=== PATIENT | female | born 1985 | race Caucasian/White ===

== ENCOUNTER → 2016-10-31 | Outpatient (CLI) | payer BC ==
[2016-10-31 13:20] LABS: LYME DISEASE AB IGG NEG (NEG); LYME DISEASE AB IGM NEG (NEG)
== END | disposition home or self-care (01) ==
LOC: C.LAB 09:28
PROVIDERS: ATTEND Family Medicine
DX: T14.8 Other injury of unspecified body region (principal); W57.XXXA Bitten or stung by nonvenomous insect and other nonvenomous arthropods, initial encounter

== ENCOUNTER → 2017-12-28 | Outpatient (CLI) | payer OTHER | END | disposition home or self-care (01) | LOC: C.LAB 08:05 | PROVIDERS: ATTEND Physician Assistant Medical | DX: Z00.00 Encounter for general adult medical examination without abnormal findings (principal) ==

== ENCOUNTER 2019-09-07 07:21 | Inpatient (IN) ==
[2019-09-07] MEDS ORDERED: OXYTOCIN 30 UNITS/500 ML BAG IV PRN ×2 (07:59→19:28)
--- NOTE | 2019-09-07 08:15 | History & Physical Report ---
Date of Service September 07, 2019 Assessment & Plan (1) Supervision of normal first : 34yo at 38.2 weeks GA. SROM 1. Fetus Cat 1 2. Labor: Contractions increasing. Will allow 4-6 hours for spontaneous labor. If unchanged will augment with oxytocin 3. Vitals: WNL 4. GBS negative History of Present Illness Primary Care Provider: JERRY SnyderC 34yo at 38.2 weeks GA. Presents with SROM. Reporting contractions increasing. No VB. Good FM. uncomplicated to date. EFW at 36 weeks US at 69% Allergies Allergy/AdvReac Type Severity Reaction Status Date / Time diphtheria,pertussis AdvReac severe GI Verified 09/02/19 07:41 (acellular),te upset [From Adacel(Tdap Adolesn/Adult)(PF)] Home Medications Home Medications Medication Instructions Recorded Confirmed Type Lactobacillus 1 cap PO HS cap 03/04/19 09/07/19 History acidophilus-Bifidobac.animalis 31 billion cell capsule [place] 3-6-9 Fatty Acids See Rx Instructions .ROUTE .COMPLEX 09/07/19 09/07/19 History vit no.[id number] 1 tab PO DAILY 09/07/19 09/07/19 History [ Vitamin] Patient History Medical History Varicella Surgical History (Updated 09/07/19 @ 07:33 by Lynn Kimble RN) History of arthroscopy of right shoulder Rotator Cuff-2002 S/P wisdom tooth extraction (~09/11/00) Social History Preferred Language: Faroese Communication Ability: Effective Visual Impairment: Partially Limited Hearing Ability: Normal Beliefs That Will Affect Care: None marital status: marital status details: Aron Kimbrough (35) [phone] Current Living Situation: Spouse Current Living Situation Comment: lives with spouse and dog current occupational status: employed 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 Seatbelt Use: always Sunscreen Use: Yes Physical Exam Constitutional: WD/WN, vitals as above Gastrointestinal (Abdomen): Percussion/Palpation: abdomen soft; abdomen nontender, no guarding and abdomen not rigid EFW 7-8lb Psychiatric: A+Ox3, euthymic affect Genitourinary: normal external appearance OB Exam Abdomen: + vertex Manual OB Exam: + cervical dilation (1.5), + cervical effacement 70%, + station -1 and + amniotic fluid clear OB Exam Monitor Tracing: + external FHT monitor used, + external uterine monitor used, + category I and + normal FHT variability; no early decelerations present, no late decelerations present and no variable decelerations CTX q4-6, Grossly ruptured on exam Results & Data Vital Signs (Past 12 Hours) Vital Signs Temp Pulse Resp BP 09/07/19 07:47 37 C 100 H 20 116/74 09/07/19 07:40 100 H 116/74 Coding Level of Care Code None Diagnoses Supervision of normal first Z34.00
[2019-09-07 08:23] LABS: Hematocrit (blood only) 34.8 % (37-47); Hemoglobin 11.8 g/dL (12.0-16.0); Mean Corpuscular Hemoglobin 33.2 pg (25-34); Mean Corpuscular Hgb Conc 33.9 g/dL (32-36); Mean Platelet Volume 8.4 fL (7.4-10.4); Platelet Count 236 K/uL (130-400); RDW Coefficient of Variation 14.1 % (11.5-14.5); RDW Standard Deviation 50.3 fL (36.4-46.3); Red Blood Count 3.55 M/uL (4.2-5.4)
--- NOTE | 2019-09-07 12:07 | Labor Progress Brief Note ---
Date of Service September 07, 2019 Subjective Reason For Note: Routine Evaluation Current Pain Level(1-10): 7 Assessment & Plan (1) Supervision of normal first : 34yo at 38.2 weeks GA. SROM 1. Fetus Cat 1 2. Labor: Contractions increasing. Will augment with oxytocin if unchanged at next exam 3. Vitals: WNL 4. GBS negative Physical Exam Genitourinary: OB Exam Abdomen: + vertex Manual OB Exam: + cervical dilation 2 cm, + cervical effacement 80%, + station -1 and + amniotic fluid clear OB Exam Monitor Tracing: + external FHT monitor used, + external uterine monitor used, + category I and + normal FHT variability; no early decelerations present, no late decelerations present and no variable decelerations Results & Data Vital Signs (Past 12 Hours) Vital Signs Temp Pulse Resp BP 09/07/19 09:34 96 H 115/70 09/07/19 07:47 37 C 100 H 20 116/74 09/07/19 07:40 100 H 116/74 Coding Level of Care Code None Diagnoses Supervision of normal first Z34.00
--- NOTE | 2019-09-07 16:12 | Labor Progress Brief Note ---
Date of Service September 07, 2019 Subjective Reason For Note: Routine Evaluation Assessment & Plan (1) Supervision of normal first : 34yo at 38.2 weeks GA. SROM 1. Fetus Cat 1 2. Labor: Progressing. Having regular painful contraction. Will augment with oxytocin if unchanged at next exam 3. Vitals: WNL 4. GBS negative Physical Exam Genitourinary: OB Exam Abdomen: + vertex Manual OB Exam: + cervical dilation 4 cm, + cervical effacement 80%, + station 0 and + amniotic fluid clear OB Exam Monitor Tracing: + external FHT monitor used, + external uterine monitor used, + category I and + normal FHT variability; no category III, no early decelerations present, no late decelerations present and no variable decelerations Results & Data Vital Signs (Past 12 Hours) Vital Signs Temp Pulse Resp BP 09/07/19 13:07 36.6 C 82 18 121/68 09/07/19 09:34 96 H 20 115/70 09/07/19 07:47 37 C 100 H 20 116/74 09/07/19 07:40 100 H 116/74 Coding Level of Care Code None Diagnoses Supervision of normal first Z34.00
[2019-09-07] MEDS: LACTATED RINGER'S 1,000 ML IV PRN ×2 (19:31→21:20)
--- NOTE | 2019-09-07 20:12 | Labor Progress Brief Note ---
Date of Service September 07, 2019 Subjective Reason For Note: Routine Evaluation Assessment & Plan (1) Supervision of normal first : 34yo at 38.2 weeks GA. SROM 1. Fetus Cat 1 2. Labor: Unchanged. Will start augmentation with oxytocin 3. Vitals: WNL 4. GBS negative Physical Exam Genitourinary: OB Exam Abdomen: + vertex Manual OB Exam: + cervical dilation 4 cm, + cervical effacement 80%, + station 0 and + amniotic fluid clear OB Exam Monitor Tracing: + external FHT monitor used, + external uterine cornelia tor used and + category I; no early decelerations present, no late decelerations present and no variable decelerations Results & Data Vital Signs (Past 12 Hours) Vital Signs Temp Pulse Resp BP 09/07/19 19:01 88 117/61 09/07/19 19:00 36.4 C L 20 09/07/19 17:18 18 09/07/19 16:16 36.7 C 77 16 115/67 09/07/19 13:07 36.6 C 82 18 121/68 09/07/19 09:34 96 H 20 115/70 Coding Level of Care Code None Diagnoses Supervision of normal first Z34.00
[2019-09-07] MEDS ORDERED: ePHEDrine sulfate 50 MG/ML AMP ONE (20:21)
[2019-09-07] MEDS ORDERED: BUPIVACAINE 0.25% 30 ML VIAL ONE (20:21)
[2019-09-07] MEDS ORDERED: fentaNYL citrate 100 MCG/2 ML VIAL ONE (20:22)
[2019-09-07] MEDS ORDERED: fentaNYL 2MCG/ML ROPIV 1.25MG/ML 100 ML BAG EPI ONE (20:22)
--- NOTE | 2019-09-07 21:52 | Anesthesiology Consultation ---
Date of Service September 07, 2019 Assessment & Plan Chart Review Chart Review: Acceptable Risk for Labor Epidural Consults Requested none History Height/Weight Height: 5 ft 9 in Weight: 98.883 kg Allergies Allergy/AdvReac Type Severity Reaction Status Date / Time diphtheria,pertussis AdvReac severe GI Verified 09/02/19 07:41 (acellular),te upset [From Adacel(Tdap Adolesn/Adult)(PF)] Medications Home Medications Medication Instructions Recorded Confirmed Last Taken Lactobacillus 1 cap PO HS cap 03/04/19 09/07/19 09/06/19 21:45 acidophilus-Bifidobac.animalis 31 billion cell capsule [place] 3-6-9 Fatty Acids See Rx Instructions .ROUTE .COMPLEX 09/07/19 09/07/19 09/06/19 21:45 vit no.[id number] 1 tab PO DAILY 09/07/19 09/07/19 09/06/19 07:00 [ Vitamin] Active Medications Generic Name Dose Route Start Last Admin Trade Name Freq PRN Reason Stop Dose Admin Lactated Ringer's 1,000 mls @ 125 mls/hr 09/07/19 07:59 09/07/19 21:42 Lr IV 09/09/19 07:58 125 mls/hr .Q8H PRN Infusion L&D Protocol Protocol Oxytocin 30 units in 500 mls @ 2 mls/hr 09/07/19 19:28 09/07/19 19:41 Pitocin IV 09/09/19 19:27 0.12 units/hr .Q24H PRN 2 mls/hr Labor Induction/Augmentation Administration Protocol 0.12 UNITS/HR Past Medical History Medical History Varicella Past Family History Family History Mother Breast cancer Grandmother Breast cancer Thyroid disease Stroke Father Hypertension Grandmother (Paternal) Cancer Lung cancer Grandfather (Maternal) Diabetes Denies family history of Rheumatoid arthritis Sudden SIDS (sudden syndrome) Ovarian cancer Prostate cancer Deep vein thrombosis Osteoporosis Coronary heart disease Dyslipidemia Cerebral aneurysm Alzheimer disease Bipolar disorder Clotting disorder Crohn's disease Dementia Depression Heart disease Kidney disease Myocardial infarction Osteoarthritis Schizophrenia Congenital kidney disease Gestational diabetes COPD (chronic obstructive pulmonary disease) Colorectal cancer Pulmonary embolism Lung disease Ulcerative colitis Colonic polyp Uterine cancer Asthma Cystic kidney disease Past Surgical History Surgical History History of arthroscopy of right shoulder Rotator Cuff-2002 S/P wisdom tooth extraction (~09/11/00) Social History Smoking Status: Never smoker Do You Dip or Chew Tobacco: No Hx Alcohol Use: No Hx Substance Use: No Physical Exam Vital Signs Last Vital Signs Temp 36.7 C 09/07/19 21:01 Pulse 102 H 09/07/19 21:49 Resp 24 09/07/19 21:01 BP 114/66 09/07/19 21:49 Pulse Ox 96 09/07/19 21:47 Testing Laboratory Results 09/07/19 08:10
--- NOTE | 2019-09-07 21:56 | Anesthesiology Consultation ---
Date of Service September 07, 2019 History Height/Weight Height: 5 ft 9 in Weight: 98.883 kg Allergies Allergy/AdvReac Type Severity Reaction Status Date / Time diphtheria,pertussis AdvReac severe GI Verified 09/02/19 07:41 (acellular),te upset [From Adacel(Tdap Adolesn/Adult)(PF)] Medications Home Medications Medication Instructions Recorded Confirmed Last Taken Lactobacillus 1 cap PO HS cap 03/04/19 09/07/19 09/06/19 21:45 acidophilus-Bifidobac.animalis 31 billion cell capsule [place] 3-6-9 Fatty Acids See Rx Instructions .ROUTE .COMPLEX 09/07/19 09/07/19 09/06/19 21:45 vit no.[id number] 1 tab PO DAILY 09/07/19 09/07/19 09/06/19 07:00 [ Vitamin] Active Medications Generic Name Dose Route Start Last Admin Trade Name Freq PRN Reason Stop Dose Admin Lactated Ringer's 1,000 mls @ 125 mls/hr 09/07/19 07:59 09/07/19 21:42 Lr IV 09/09/19 07:58 125 mls/hr .Q8H PRN Infusion L&D Protocol Protocol Oxytocin 30 units in 500 mls @ 2 mls/hr 09/07/19 19:28 09/07/19 19:41 Pitocin IV 09/09/19 19:27 0.12 units/hr .Q24H PRN 2 mls/hr Labor Induction/Augmentation Administration Protocol 0.12 UNITS/HR Past Medical History Medical History Varicella Past Family History Family History Mother Breast cancer Grandmother Breast cancer Thyroid disease Stroke Father Hypertension Grandmother (Paternal) Cancer Lung cancer Grandfather (Maternal) Diabetes Denies family history of Rheumatoid arthritis Sudden SIDS (sudden syndrome) Ovarian cancer Prostate cancer Deep vein thrombosis Osteoporosis Coronary heart disease Dyslipidemia Cerebral aneurysm Alzheimer disease Bipolar disorder Clotting disorder Crohn's disease Dementia Depression Heart disease Kidney disease Myocardial infarction Osteoarthritis Schizophrenia Congenital kidney disease Gestational diabetes COPD (chronic obstructive pulmonary disease) Colorectal cancer Pulmonary embolism Lung disease Ulcerative colitis Colonic polyp Uterine cancer Asthma Cystic kidney disease Past Surgical History Surgical History History of arthroscopy of right shoulder Rotator Cuff-2002 S/P wisdom tooth extraction (~09/11/00) Social History Smoking Status: Never smoker Do You Dip or Chew Tobacco: No Hx Alcohol Use: No Hx Substance Use: No Physical Exam Vital Signs Last Vital Signs Temp 36.7 C 09/07/19 21:01 Pulse 97 H 09/07/19 21:53 Resp 24 09/07/19 21:01 BP 121/71 09/07/19 21:53 Pulse Ox 98 09/07/19 21:52 Testing Laboratory Results 09/07/19 08:10
[2019-09-07] MEDS ORDERED: DiphenhydrAMINE HCL 50 MG/ML VIAL IV PRN (21:57)
[2019-09-07] MEDS ORDERED: NALOXONE HCL 1 MG in SODIUM CHLORIDE 0.9% 1000ML 1,000 ML IV PRN (21:57)
[2019-09-07] MEDS ORDERED: fentaNYL 2MCG/ML ROPIV 1.25MG/ML 100 ML BAG EPI PRN (21:57)
[2019-09-07] MEDS ORDERED: ePHEDrine sulfate 50 MG/ML AMP IV PRN (21:57)
[2019-09-07] MEDS ORDERED: NALOXONE HCL 0.4 MG/1 ML VIAL/CARP IV PRN (21:57)
[2019-09-07] MEDS ORDERED: NALBUPHINE HCL INJ 10 MG/ML AMP IV PRN (21:57)
[2019-09-08] MEDS: LACTATED RINGER'S 1,000 ML IV PRN (03:40)
[2019-09-08] MEDS ORDERED: bisacodyL 10 MG SUPP PR PRN (05:06)
[2019-09-08] MEDS ORDERED: BENZOCAINE 20% AER SPR 82.5 GM CAN EXT PRN (05:06)
[2019-09-08] MEDS ORDERED: DIPHTHERIA/TETANUS/PERTUSSIS 0.5 ML SYR/VIAL IM ONE (05:06)
[2019-09-08] MEDS ORDERED: OXYTOCIN 30 UNITS/500 ML BAG IV PRN (05:06)
[2019-09-08] MEDS ORDERED: SUPERCREAM 0.870% 15 GM JAR EXT PRN (05:06)
[2019-09-08] MEDS ORDERED: ACETAMINOPHEN 325 MG TAB PO PRN (05:06)
[2019-09-08] MEDS ORDERED: HYDROCORTISONE ACETATE 25 MG SUPP PR PRN (05:06)
[2019-09-08 05:28] LABS: Base Excess Cord Venous Blood -4.8 mEq/L (-7.7-1.9); Cord Venous Blood HCO3 18 mmol/L (18.4-26.8); Cord Venous Blood PCO2 28 mmHg (30.4-57.2); Cord Venous Blood PO2 40 mmHg (14.1-43.3); Cord Venous Blood pH 7.42 (7.20-7.44)
--- NOTE | 2019-09-08 07:22 | Anesthesia Procedure Note ---
Date of Service September 08, 2019 Anesthesia Post Epidural Note Vital Signs Vital Signs: Temp Pulse Resp BP Pulse Ox 37.4 C 106 H 20 112/72 99 09/08/19 04:05 09/08/19 07:18 09/08/19 06:40 09/08/19 07:18 09/08/19 05:07 Notes Mental Status: alert / awake / arousable and participated in evaluation Nausea / Vomiting: adequately controlled Pain: adequately controlled Airway Patency, RR, SpO2: stable & adequate BP & HR: stable & adequate Hydration State: stable & adequate Neuraxial Anesthesia: was administered and sensory block resolved Anesthetic Complications: no major complications apparent Epidural: Removed without complications and With tip intact
--- NOTE | 2019-09-08 08:27 | Operative Report (OR) ---
DATE OF OPERATION: 09/08/2019 PROCEDURE: Vacuum-assisted vaginal delivery with first degree laceration repair. SURGEON: Kenrick Carr MD. PREOPERATIVE DIAGNOSES: 1. Single intrauterine at 38 weeks 3 days gestational age. 2. Spontaneous rupture of membranes. 3. Prolonged second stage of labor. 4. Maternal exhaustion. POSTOPERATIVE DIAGNOSES: 1. Single intrauterine at 38 weeks 3 days gestational age. 2. Spontaneous rupture of membranes. 3. Prolonged second stage of labor. 4. Maternal exhaustion. 5. Status post delivery. ESTIMATED BLOOD LOSS: 300 mL. DRAINS: None. FLUIDS: Continuous lactated Ringer. URINE OUTPUT: Not measured. COMPLICATIONS: None. FINDINGS: Viable male infant with weight 7 pounds 3.3 ounces and Apgars pending. INDICATIONS: Mariah is a 34-year-old , admitted at 38 weeks 2 days gestational age for spontaneous rupture of membranes, early labor. The patient initially progressed without augmentation to approximately 4 cm, after which she was unchanged between 2 checks. She was started on oxytocin per regular protocol and progressed in labor over several hours to complete-complete +1 station. The patient was able to labor down due to the high station for approximately 1 hour, at which she pushed for approximately 1 hour and then labored down for another hour and then pushed for approximately 2 hours. At that point, the patient did receive an epidural for anesthesia after starting oxytocin. After the 3 hours of pushing, a vacuum-assisted delivery versus continued pushing was discussed. We discussed the risks of performing a vacuum-assisted delivery including the most significant risk of cephalohematoma. The patient was verbally consented for the procedure, and the procedure was initiated and performed. DESCRIPTION OF PROCEDURE: The patient progressed to 10 cm dilated, 100% effaced, +1 station, pushed over an intact perineum for approximately 3 hours, at which time a vacuum was applied and as noted per above, the vacuum was thought to be applied at 2 cm anterior to posterior fontanelle, although inspection after delivery was noted a bit more lateral of a vacuum placement. The vacuum was pressurized within the green zone and care was taken to not pull with greater force than indicated on the pull force indicator. In total over 9 contractions with 1 pop off to achieve delivery, the did come in OP position and it seemed to be slightly asynclitic at the time of vacuum placement. The vacuum did have difficulty maintaining suction during pulls, which was an issue during the first approximately 5-6 pulls, after which the vacuum did seem to start working better and was able to maintain pressure during pulls. This did make it difficult to achieve adequate pulling during the first 4-6 contractions. After the head was fully , the vacuum was removed and the head of the continued to progress to deliver after 1 more push. The body and shoulders did quickly followed. There was noted to be thick meconium upon delivery. The was stable in the maternal abdomen for about 10-15 seconds. It was noted to not be vigorous, so the cord was double clamped and cut, and the was taken over to the waiting nursery staff. Cord segment and cord blood was obtained. Attention was then turned to delivery of the placenta, which was delivered intact, 3-vessel cord, with gentle cord traction. On inspection of the perineum, vagina, and cervix, there was noted to be first degree perineal laceration, which was repaired with 3-0 Vicryl continuous running locked stitch. Needle, sponge and instrument counts were correct at the completion of the case. Both mother and were stable in the immediate post-delivery period. Baby was taken to the nursery for closer surveillance. The mother remained in the delivery room. I attest to the content of the Intraoperative Record and any orders documented therein. Any exception s are noted below.
[2019-09-08] MEDS: PRENATAL VITAMIN 1 TAB PO SCH (09:49)
[2019-09-08] MEDS: DOCUSATE SODIUM 100 MG CAP PO SCH ×2 (09:49→20:27)
[2019-09-08] MEDS: IBUPROFEN 600 MG TAB PO PRN (15:58)
[2019-09-09] MEDS: IBUPROFEN 600 MG TAB PO PRN ×4 (01:55→17:44)
--- NOTE | 2019-09-09 06:23 | Obstetrical Progress Note ---
Date of Service September 09, 2019 Assessment & Plan (1) Status post vacuum-assisted vaginal delivery: Doing well. routine care. First baby so likely staying til tomorrow. Baby having some skin issues on the scalp from delivery. Monitoring. Day #:: 1 Subjective Ambulation: ambulating normally Voiding: no voiding problems Passing Gas:: Yes Diet Tolerance:: regular diet Lochia:: Small Feeding Type:: breast feeding Physical Exam Constitutional WD/WN, vitals as above Cardiovascular Extremities: no calf tenderness and no edema Gastrointestinal (Abdomen) soft, nt, nd, ff/ nt at u Psychiatric A+Ox3, euthymic affect Results & Data Vital Signs (Past 12 Hours) Vital Signs Temp Pulse Resp BP Pulse Ox 09/08/19 19:31 36.7 C 100 H 18 106/71 98
[2019-09-09 06:58] LABS: Hematocrit (blood only) 32.1 % (37-47); Hemoglobin 10.7 g/dL (12.0-16.0); Mean Corpuscular Hemoglobin 32.5 pg (25-34); Mean Corpuscular Hgb Conc 33.3 g/dL (32-36); Mean Corpuscular Volume 97.6 fL (80-100); Mean Platelet Volume 8.4 fL (7.4-10.4); Platelet Count 185 K/uL (130-400); RDW Coefficient of Variation 14.1 % (11.5-14.5); RDW Standard Deviation 50.4 fL (36.4-46.3); Red Blood Count 3.29 M/uL (4.2-5.4)
[2019-09-09] MEDS: DOCUSATE SODIUM 100 MG CAP PO SCH ×2 (08:40→20:32)
[2019-09-09] MEDS: PRENATAL VITAMIN 1 TAB PO SCH (08:40)
[2019-09-09] MEDS ORDERED: bisacodyL 5 MG TABEC PO SCH (20:00)
[2019-09-10 06:39] LABS: Hemoglobin 10.7 g/dL (12.0-16.0)
--- NOTE | 2019-09-10 07:28 | Obstetrical Progress Note ---
Date of Service September 10, 2019 Assessment & Plan (1) Status post vacuum-assisted vaginal delivery: satisfactory progress discharge to home follow up in 6 weeks Day #:: 2 Subjective Ambulation: ambulating normally Passing Gas:: Yes Diet Tolerance:: regular diet Lochia:: Small Feeding Type:: breast feeding Review of Systems All systems reviewed & are unremarkable except as noted in HPI & below Physical Exam Constitutional WD/WN, vitals as above Psychiatric A+Ox3, euthymic affect Genitourinary OB Exam Abdomen: + fundal height Fundus: + firm and + relation to umbilicus (2 below U) Results & Data Vital Signs (Past 12 Hours) Vital Signs Temp Pulse Resp BP Pulse Ox 09/09/19 23:40 98.4 F 106 H 18 118/72 100 09/09/19 21:00 98.1 F 102 H 18 108/71 98
[2019-09-10] MEDS: DOCUSATE SODIUM 100 MG CAP PO SCH (08:42)
[2019-09-10] MEDS: PRENATAL VITAMIN 1 TAB PO SCH (08:42)
--- NOTE | 2019-09-15 09:39 | Discharge Summary (DS) ---
PROCEDURES WHILE ADMITTED: Vacuum-assisted vaginal delivery. HOSPITAL COURSE: The patient was admitted to labor and delivery for spontaneous rupture of membranes in early labor. The patient ultimately progressed to complete-complete, +2 station and pushed for over 3 hours with descent to +2 to +3 station. At that time, the patient was experiencing significant maternal fatigue and a vacuum-assisted delivery was offered, which was performed with success; please see delivery summary for additional details. After delivery, the patient remained in labor and delivery for recovery and did well. She remained in house for 2 days and was doing well throughout her course. The patient had no issues or concerns of note during her course and was discharged home on day #2. The patient was given both written and verbal discharge instructions and will follow up at 6 weeks for care or earlier as needed based on the recommendations provided.
== END 2019-09-10 13:45 | disposition home or self-care (01) | DRG 807 ==
LOC: OPB 07:21 → 4S1 07:22 → 4S2 09-08 07:41

== ENCOUNTER 2022-05-30 13:55 | Inpatient (IN) ==
[2022-05-30] MEDS ORDERED: SODIUM CHLORIDE 0.9% 250 ML IV PRN (14:29)
[2022-05-30] MEDS ORDERED: LACTATED RINGER'S 1,000 ML IV SCH (14:30)
--- NOTE | 2022-05-30 14:31 | Anesthesiology Consultation ---
Date of Service May 30, 2022 Assessment & Plan (1) Encounter for pre-operative examination: Chart Review Chart Review: Acceptable Risk for Surgery Consults Requested none ASA [id number] Proposed Anesthesia Anesthesia Type: Spinal Risk / Benefits Reviewed With: PT / POA / Parent / Guardian, Accepts Plan and Informed Consent Obtained History Allergies Allergy/AdvReac Type Severity Reaction Status Date / Time diphtheria,pertussis AdvReac Intermediate severe GI Verified 05/26/22 10:09 (acellular),te upset [From Adacel(Tdap Adolesn/Adult)(PF)] Medications Home Medications Medication Instructions Recorded Confirmed Last Taken prenat.vits,eleuterio,xpt-naky-mdadn 1 tab PO QAM 11/11/21 05/30/22 05/30/22 Lactobacillus acidophilus 1,000 mmu cells PO QAM 05/12/22 05/30/22 05/29/22 NPO Date Last Intake of Fluids: 05/30/22 Time Last Intake of Fluids: 12:30 Date Last Intake of Solids: 05/30/22 Time Last Intake of Solids: 12:30 Past Medical History Medical History Heart palpitations Rare, s/p unremarkable holter with 2019 per pt History of COVID-19 06/2021 > asymptomatic Placenta previa Post traumatic stress disorder r/t first Exercise / Class Metabolic Activity II 4-5 Yardwork/Stairs/Walk up hill Past Family History Family History Mother Breast cancer Grandmother Thyroid disease Stroke Father Hypertension Grandmother (Paternal) Lung cancer Breast cancer Grandfather (Maternal) Diabetes Denies family history of Rheumatoid arthritis Sudden SIDS (sudden syndrome) Ovarian cancer Prostate cancer Deep vein thrombosis Osteoporosis Coronary heart disease Dyslipidemia Cerebral aneurysm Alzheimer disease Bipolar disorder Clotting disorder Crohn's disease Dementia Depression Heart disease Kidney disease Myocardial infarction Osteoarthritis Schizophrenia Congenital kidney disease Gestational diabetes COPD (chronic obstructive pulmonary disease) Colorectal cancer Pulmonary embolism Lung disease Ulcerative colitis Colonic polyp Uterine cancer Asthma Cystic kidney disease Past Surgical History Surgical History History of arthroscopy of right shoulder Rotator Cuff-2002 History of vacuum extraction assisted delivery S/P wisdom tooth extraction Past Anesthesia History No Hx of Anesthesia Complications and No Family Hx of Anesthesia Complications History of PONV No Hx of PONV and No Hx of Motion Sickness Social History Smoking Status: Never smoker Hx Alcohol Use: No Hx Substance Use: No substance use type: does not use Physical Exam Vital Signs Last Vital Signs Pulse 103 H 05/30/22 14:16 BP 114/68 05/30/22 14:16 ENMT Mouth: no dentition abnormality Thyromental Distance: > or= 3.5 Finger Breadths Mallampati Class: I Neck normal visual inspection Respiratory normal respiratory effort Auscultation: lungs clear to auscultation bilaterally Cardiovascular Rate/Rhythm: regular rate and regular rhythm
--- NOTE | 2022-05-30 14:40 | History & Physical Report ---
Date of Service May 30, 2022 Assessment & Plan (1) Placenta previa: (2) Vaginal bleeding: Plan 37 yo at 35 5/7 presents with vaginal bleeding in the setting of known placenta previa VSS Fetus cat 1 VB - this is second episode of bleeding and today's has mod to large size clots and bleeding, hard to determine if SROM occurred or not. Has already received dose of steroids at 33 wks so is not a candidate for repeat course in late GA. With amount of bleeding noted on exam in the setting of previa and current GA, already s/p betamethasone, rec delivery. Discussed at current GA, most babies do well however this is still risk of baby needing to be transferred after delivery. Would not recommend maternal transfer at this point given bleeding, pt verbalized understanding and in agreement. Discussed indications, risks, benefits, alternatives with risks including infection, bleeding, injury to adjacent structures (bowel, bladder, ureters, blood vessels, nerves, baby), possible need for blood transfusion and/or life saving hysterectomy especially in the setting of previa, VTE. Consent reviewed in detail w/ pt and signed after all questions answered to her satisfaction. Will T&C x 2u. Anesthesia and peds made aware. History of Present Illness Chief Complaint: VB, placenta previa Primary Care Provider: NO PCP 37 yo at 35 5/7 wga presents w/ c/o VB in the setting of known placenta previa. At 120pm today was laying down and felt a warm gush of fluid that was noted to be bloody and watery. This is slightly different to what caused her to present a few weeks ago as today was more watery and continuously trickling out rather than just with wiping a few weeks ago and just more bloody/sticky. +FM, some ctx that are more regular than BH she had previously. Of note was observed at 33 wks for bleeding and given course of BMZ. 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 Hx: G1 2019 VAVD at 38 wks G2 2021 SAB G3 current regular cycles denies hx STIs 09/2019 neg cotest Allergies Allergy/AdvReac Type Severity Reaction Status Date / Time diphtheria,pertussis AdvReac Intermediate severe GI Verified 05/26/22 10:09 (acellular),te upset [From Adacel(Tdap Adolesn/Adult)(PF)] Home Medications Medication Instructions Recorded Confirmed Type prenat.vits,eleuterio,ylk-zvra-qdzdq 1 tab PO QAM 11/11/21 05/30/22 History Lactobacillus acidophilus 1,000 mmu cells PO QAM 05/12/22 05/30/22 History Patient History Medical History Heart palpitations Rare, s/p unremarkable holter with 2019 per pt History of COVID-19 06/2021 > asymptomatic Placenta previa Post traumatic stress disorder r/t first Surgical History History of arthroscopy of right shoulder Rotator Cuff-2002 History of vacuum extraction assisted delivery S/P wisdom tooth extraction Family History Mother Breast cancer Grandmother Thyroid disease Stroke Father Hypertension Grandmother (Paternal) Lung cancer Breast cancer Grandfather (Maternal) Diabetes Denies family history of Rheumatoid arthritis Sudden SIDS (sudden syndrome) Ovarian cancer Prostate cancer Deep vein thrombosis Osteoporosis Coronary heart disease Dyslipidemia Cerebral aneurysm Alzheimer disease Bipolar disorder Clotting disorder Crohn's disease Dementia Depression Heart disease Kidney disease Myocardial infarction Osteoarthritis Schizophrenia Congenital kidney disease Gestational diabetes COPD (chronic obstructive pulmonary disease) Colorectal cancer Pulmonary embolism Lung disease Ulcerative colitis Colonic polyp Uterine cancer Asthma Cystic kidney disease Social History Smoking Status: Never smoker Second Hand Exposure: No; Hx Alcohol Use: No Hx Substance Use: No Preferred Language: Irish Communication Ability: Effective Visual Impairment: Partially Limited Hearing Ability: Normal Senior Writer Required: No Beliefs That Will Affect Care: None marital status: marital status details: Aron Kimbrough (38) [phone] Current Living Situation: Spouse Current Living Situation Comment: lives with spouse, son and dog current occupational status: employed current occupation: [employer] How many Children do You have: 1 Feels Safe at Home: Yes Childhood Exposure to Second-Hand Smoke: No caffeine: Yes (coffee) Dental Care, Regularly: Yes Physical Activity Frequency: Daily Physical Activity Frequency Comment: Takes her dog for a walk, daily. Seatbelt Use: always Sunscreen Use: Yes Assistive Devices: Glasses Physical Exam Genitourinary: OB Exam Monitor Tracing: + external FHT monitor used, + external uterine monitor used (none) and + category I (150/mod/+accel/-decel) SSE - mod to large amount of clot noted to fill speculum, after moving clot out, trickle of blood noted making it difficult to fully visualize cervix No obvious ferning noted on microscopy. SVE deferred Results & Data ([facility]) Vital Signs (Past 12 Hours) Vital Signs Pulse BP 05/30/22 14:16 103 H 114/68 Laboratory Results OB Labs: Blood Type A Positive 05/14/22 Antibody Screen NEGATIVE 05/14/22 Hemoglobin 10.3 g/dl (12.0-16.0) L 05/14/22 Hematocrit 30.2 % (34.1-44.9) L 05/14/22 Mean Corpuscular Volume 100.3 fL (80.0-100.0) H 05/14/22 Platelet Count 173 K/uL (130-400) 05/14/22 Rubella IgG Antibody Immune (Immune) 11/17/21 Rapid Plasma Reagin Nonreactive (Nonreactive) 11/17/21 Hepatitis B Surface Antigen Neg (Neg) 02/18/19 Hepatitis B Surface Antigen. NON-REACTIVE (NON-REACTIVE) 11/17/21 Hepatitis C Antibody (EIA) NON-REACTIVE (NON-REACTIVE) 11/17/21 HIV (1&2) Ab and P24 Ag, 4th Gener Neg (Neg) 02/18/19 HIV (1&2) Ag and Ab Confirmation NON-REACTIVE (NON-REACTIVE) 11/17/21 Glucose 1 Hour 50 gm Load 96 mg/dl (70-130) 06/30/19 Maternal Serum Alpha Fetoprotein 43.4 ng/mL 01/12/22 OB Optional Labs: Chlamydia trachomatis RNA NOT DETECTED (NOT DETECTED) 11/17/21 Neisseria gonorrhoeae RNA NOT DETECTED (NOT DETECTED) 11/17/21 Thyroid Stimulating Hormone (TSH) 2.640 uIu/ml (0.300-4.500) 12/24/20 Alpha Fetoprotein Triple Screen SEE NOTE 01/12/22 Labs Reviewed: cf/sma neg 2018 akh low risk panorama neg afp Diagnostic Findings 05/26 post previa still noted Coding Level of Care Code None Diagnoses Placenta previa O44.00 Vaginal bleeding N93.9
[2022-05-30] MEDS ORDERED: ceFAZolin 2000MG 2,000 MG/15 ML SYR IV SCH (14:41)
[2022-05-30] MEDS ORDERED: CITRIC ACID/SODIUM CITRATE 15 ML UDC PO SCH (14:45)
[2022-05-30] MEDS ORDERED: OXYTOCIN 10 UNITS/ML 10ML VIAL ONE (14:59)
[2022-05-30] MEDS ORDERED: MoRPHine SULFATE PF 1 MG/ML 10 ML AMP/VIAL ONE (15:02)
[2022-05-30] MEDS ORDERED: fentaNYL citrate 100 MCG/2 ML VIAL ONE (15:02)
[2022-05-30 15:06] LABS: Basophils # (auto) 0.02 K/uL (0-0.2); Basophils % (auto) 0.2 %; Eosinophils # (auto) 0.05 K/uL (0-0.50); Eosinophils % (auto) 0.5 %; Hematocrit (blood only) 32.3 % (34.1-44.9); Immature Granulocytes # (auto) 0.03 K/uL (0.00-0.02); Immature Granulocytes % (auto) 0.3 %; Lymphocytes # (auto) 1.39 K/uL (1.2-3.4); Lymphocytes % (auto) 14.5 %; Mean Corpuscular Hemoglobin 33.4 pg (25.0-34.0); Mean Corpuscular Hgb Conc 34.1 g/dL (32.0-36.0); Mean Corpuscular Volume 98.2 fL (80.0-100.0); Mean Platelet Volume 8.1 fL (9.4-12.3); Monocytes % (auto) 5.2 %; Neutrophils % (auto) 79.3 %; Platelet Count 253 K/uL (130-400); RDW Coefficient of Variation 14.1 % (11.5-14.5); RDW Standard Deviation 51.3 fL (36.4-46.3); Red Blood Count 3.29 M/uL (3.93-5.22); White Blood Count 9.59 K/ul (4.8-10.8)
[2022-05-30] MEDS ORDERED: MEPERIDINE HCL 25 MG/ML CARP/VIAL IV PRN (16:11)
[2022-05-30] MEDS ORDERED: NALOXONE HCL 1 MG in SODIUM CHLORIDE 0.9% 1000ML 1,000 ML IV PRN (16:11)
[2022-05-30] MEDS ORDERED: MoRPHine SULFATE PF 1 MG/ML 10 ML AMP/VIAL INT SPINAL ONE (16:11)
[2022-05-30] MEDS ORDERED: ONDANSETRON INJ 2 MG/ML 2 ML VIAL IV PRN (16:11)
[2022-05-30] MEDS ORDERED: NALOXONE HCL 0.08 MG in SYRINGE 1.8 ML IV PRN (16:11)
[2022-05-30] MEDS ORDERED: KETOROLAC 30 MG/ML VIAL IV PRN (16:11)
[2022-05-30] MEDS ORDERED: ePHEDrine sulfate 50 MG/ML AMP IV PRN (16:11)
[2022-05-30] MEDS ORDERED: NALOXONE HCL 0.4 MG/1 ML VIAL/CARP IV PRN (16:11)
[2022-05-30] MEDS ORDERED: LACTATED RINGER'S 500 ML IV PRN (16:11)
[2022-05-30] MEDS ORDERED: diphenhydrAMINE 50 MG/ML VIAL IV PRN (16:11)
[2022-05-30] MEDS ORDERED: NALBUPHINE HCL INJ 10 MG/ML AMP IV PRN (16:11)
[2022-05-30] MEDS ORDERED: SODIUM CHLORIDE 0.9% 1000ML 1,000 ML IV SCH (16:15)
[2022-05-30] MEDS ORDERED: NO NARCOTICS OR SEDATIVES SCH (16:15)
[2022-05-30] MEDS ORDERED: DC INTRASPINAL MORPHINE SCH (16:15)
--- NOTE | 2022-05-30 17:22 | Operative Report ---
PG Post Operative Report Pre & Post Diagnosis Operation Date: 05/30/22 14:25 Pre-operative diagnosis: 1. Single intrauterine at 35 5/7 wga 2. Placenta previa 3. Vaginal bleeding Post-operative diagnosis: 1. Single intrauterine at 35 5/7 wga 2. Placenta previa 3. Vaginal bleeding 4. Delivered I identified the patient and participated in the time-out.: Yes Procedure Operation Date: 05/30/22 14:25 Actual Procedures p Primary Low Transverse Section in OR of a live female child @ 1624(Bilateral) - Nettie Michaels MD Surgeon Nettie Michaels MD Porcelain Enameling Supervisor MD Lauren; MD Kerry Estimated Blood Loss 800 Findings Consistent with Post-Op Diagnosis Normal appearing uterus, bilateral fallopian tubes and ovaries. Posterior uterus with filmy implantation adhesions. Viable female with APGARs of 8 and 8 Fluids 1500cc crystalloid, UOP 250cc clear urine by qiu catheter Specimens Placenta, cord blood Drains Qiu draining clear urine Anesthesia Type Spinal Complications none Disposition Accompanied Patient To Recovery: Yes Disposition: L&D Indications 37 yo at 35 5/7 wga presented for evaluation on L&D this afternoon due to large amount of vaginal bleeding this afternoon. Of note, she had been observed at 33 weeks for vaginal bleeding that did resolve and received a course of betamethasone. On exam, she was noted to have a moderate to large amount of bleeding today. Given gestational age and bleeding, she was recommended for delivery. Description of Procedure The patient was taken to the operating room after consents were ensured. The patient was properly identified. Spinal anesthesia was obtained without difficulty. The patient was placed in a dorsal supine position with left lateral tilt, then prepped and draped in normal sterile fashion. Surgical time out was performed. Antibiotics were given for prophylaxis. Anesthesia was tested to ensure adequate surgical levels. Pfannenstiel skin incision was performed and carried down to the underlying fascia with a knife. The fascia was then nicked in the midline and extended laterally with pickadriana and Layne scissors. Superior portion of the fascia was grasped with Kochers x2 and elevated off the underlying rectus muscles using blunt dissection. Inferior portion of the fascia was then grasped with Karl clamps x2 and also elevated off the underlying muscles with blunt dissection. Midline was identified. The peritoneum was then entered and extended to provide adequate room for delivery of baby. A hand was inserted into the abdomen, uterus was noted to be clear of adhesions. Bladder blade was inserted, bladder flap was created in the usual fashion. A low transverse uterine incision was made in the uterus and extended bluntly in a superior to inferior fashion. Amniotomy was made with clear fluid at the time of rupture. head was grasped and elevated through the hysterotomy in an atraumatic fashion. The baby delivered in LASHA position, no nuchal cord. Remainder of the body delivered without incident. Nose and mouth were bulb suctioned on the surgical field. The cord was double clamped and cut, baby was handed off to awaiting pediatrics staff. Cord segment and blood were obtained. Placenta was then expressed from the uterus. The uterus was exteriorized. Several passes were made inside the uterus to remove the remaining membranes. Attention was then turned to the hysterotomy, which was then closed with a running locked suture of 0 Vicryl on a CTX needle. An imbricating layer was then performed using 0-Monocryl. There was noted to be good hemostasis. The posterior cul-de-sac was then inspected and cleaned of clot and debris. There was noted to be bleeding from the filmy adhesions posteriorly that was made hemostatic with cautery and luís-seal. There was then good hemostasis. The hysterotomy was again inspected and noted to be hemostatic. The uterus was returned to the abdomen. The right and left pericolic gutters were cleaned of all clot and debris. The hysterotomy was again noted to be hemostatic. Space of Retzius was noted to be hemostatic. Debby was applied to the hysterotomy. The fascia was then closed with a running suture of 0 Vicryl on a CT1 needle. Subcutaneous tissue was copiously irrigated and noted to be hemostatic. Subcutaneous tissue was re-approximated using 2-0 plain gut. The skin was then closed with a running suture of 3-0 Monocryl in a subcuticular fashion. At termination of the procedure, fundal pressure was applied and a moderate amount of lochia was expressed. Pressure dressing was applied to the patient. She tolerated the procedure well. All sponge, needle, instrument counts were correct x 2. I attest to the content of the Intraoperative Record and any orders documented therein. Any exceptions are noted below. OB Procedure Charges 53812
[2022-05-30] MEDS ORDERED: PHENYLEPHRINE HCL 10 MG/ML VIAL ONE (17:27)
[2022-05-30] MEDS ORDERED: ONDANSETRON INJ 2 MG/ML 2 ML VIAL ONE (17:27)
[2022-05-30] MEDS ORDERED: MAGNESIUM HYDROXIDE SUSP 30 ML UDC PO PRN (18:11)
[2022-05-30] MEDS ORDERED: BENZOCAINE 20% AER SPR 82.5 GM CAN EXT PRN (18:11)
[2022-05-30] MEDS ORDERED: HYDROCORTISONE ACETATE 25 MG SUPP PR PRN (18:11)
[2022-05-30] MEDS ORDERED: PROMETHAZINE HCL 25 MG in SODIUM CHLORIDE 0.9% 50 ML IV PRN (18:11)
[2022-05-30] MEDS ORDERED: SENNA 8.6 MG TAB PO PRN (18:11)
--- NOTE | 2022-05-30 18:13 | Anesthesiology Progress Note ---
Date of Service May 30, 2022 Anesthesia Post Procedure Vital Signs Vital Signs: Temp Pulse Resp BP Pulse Ox 05/30/22 17:58 16 05/30/22 17:48 18 05/30/22 17:38 18 05/30/22 17:28 16 05/30/22 17:18 98.2 F 16 05/30/22 17:18 97.9 F 16 05/30/22 14:03 98.2 F 20 05/30/22 18:08 91 H 97/56 L 05/30/22 18:07 85 100 05/30/22 18:02 88 100 05/30/22 17:57 85 100 05/30/22 17:58 83 105/61 05/30/22 17:52 92 H 100 05/30/22 17:48 89 101/62 05/30/22 17:47 92 H 100 05/30/22 17:42 94 H 100 05/30/22 17:39 100 H 126/73 05/30/22 17:36 100 H 100 05/30/22 17:31 84 100 05/30/22 17:28 87 96/66 L 05/30/22 17:26 92 H 99 05/30/22 17:21 89 100 05/30/22 17:18 88 109/61 05/30/22 17:16 90 100 05/30/22 15:00 20 05/30/22 15:00 20 05/30/22 14:16 103 H 114/68 Transfer of Care Handoff Completed per policy Notes Mental Status: alert / awake / arousable and participated in evaluation Patient Amnestic to Procedure: Yes Nausea / Vomiting: adequately controlled Pain: adequately controlled Airway Patency, RR, SpO2: stable & adequate BP & HR: stable & adequate Hydration State: stable & adequate Neuraxial Anesthesia: was administered and sensory block is resolving Anesthetic Complications: no major complications apparent and Pt Satisfied with anesthetic care
[2022-05-30] MEDS: OXYTOCIN 20 UNITS in LACTATED RINGER'S 1,000 ML IV SCH (18:28)
[2022-05-30] MEDS: SIMETHICONE 80 MG CHEW PO SCH (21:00)
[2022-05-30] MEDS: DOCUSATE SODIUM 100 MG CAP PO SCH (21:00)
[2022-05-31] MEDS: OXYTOCIN 20 UNITS in LACTATED RINGER'S 1,000 ML IV SCH (04:55)
--- NOTE | 2022-05-31 05:40 | Obstetrical Progress Note ---
Date of Service <Barbara Smith DO Kerry - Last Filed: 05/31/22 06:18> May 31, 2022 Assessment & Plan <Barbara Smith DO Kerry - Last Filed: 05/31/22 06:18> (1) care following delivery: Patient is PPD 1 s/p primary C section and doing well. - Remove urinary catheter today - Vitals reviewed and within normal limits - Pain well controlled w/o analgesics - OOB, ambulation, diet progression as tolerated - Blood type: A+, GBS neg, rubella immune - Plan to discharge tomorrow pending clinical status - After discharge, 6 [address] follow up with Dr. Michaels (2) Placenta previa: <Nettie Michaels MD - Last Filed: 05/31/22 07:02> (1) care following delivery: (2) Placenta previa: Subjective <Barbara HuntDO zan - Last Filed: 05/31/22 06:18> Patient is a 37 yo female is POD #1 following delivery at 35+5 weeks d/t placenta previa w/ associated bleeding. She reports feeling well overall this morning. She endorses abdominal cramping and cannot rate pain as she describes her sensation as an ache or a soreness. She has not required analgesics at this point. Urinary catheter still in place. Tolerating fluids overnight; has not yet been hungry for food. She has not ambulated yet. She has "gas pains" but no passage of gas and no bowel movement. Persistent lochia with some improvement this morning. Currently breast feeding w/ supplementation as necessary. Review of Systems Denies fever, chills, sweats. Denies SOB, difficulty breathing, chest pain, palpitations, and chest pressure. Denies breast pain. Denies dysuria. Denies headache or changes in vision. Physical Exam <Barbara RichardsonGlenn Payne DO - Last Filed: 05/31/22 06:18> General: Alert and oriented. No acute distress. CV: Regular rate and rhythm. No murmurs. Respiratory: CTA bilaterally. No rhonchi, wheezes, or crackles. No increased work of breathing. Abdomen: Hypoactive bowel sounds. Soft, nontender, and nondistended. Uterus: Fundus firm and palpable 2 cm below umbilicus. Surgical scar dressing in place. Clean and dry. Lower extremities: No LE edema. No deep calf pain. Moris's negative bilaterally. SCDs on and functional. Results & Data ([facility]) <Barbara Payne, DO - Last Filed: 05/31/22 06:18> Vital Signs (Past 12 Hours) Vital Signs Temp Pulse Pulse Pulse Resp BP BP 05/31/22 04:40 36.7 C 98 H 18 05/31/22 03:30 18 05/30/22 23:30 36.4 C L 96 H 18 05/31/22 02:30 18 05/31/22 01:30 18 05/31/22 00:30 18 05/30/22 23:30 18 05/30/22 22:30 18 05/30/22 20:45 36.9 C 18 05/30/22 20:30 18 05/30/22 19:30 36.4 C L 96 H 18 102/64 05/30/22 19:30 18 05/30/22 19:20 36.4 C L 18 05/30/22 19:20 05/30/22 19:20 36.4 C L 96 H 18 102/69 05/30/22 18:48 16 05/30/22 18:18 18 05/30/22 18:08 16 05/30/22 17:58 16 05/30/22 17:48 18 05/30/22 19:17 93 H 102/64 05/30/22 19:12 97 H 05/30/22 19:08 105 H 102/69 05/30/22 19:07 104 H 05/30/22 19:02 99 H 05/30/22 18:57 90 05/30/22 18:58 92 H 110/68 05/30/22 18:52 91 H 05/30/22 18:48 93 H 109/66 05/30/22 18:47 101 H 05/30/22 18:42 89 05/30/22 18:38 85 100/60 05/30/22 18:37 90 05/30/22 18:32 91 H 05/30/22 18:28 86 108/72 05/30/22 18:27 91 H 05/30/22 18:22 94 H 05/30/22 18:19 89 109/60 05/30/22 18:17 90 05/30/22 18:12 81 05/30/22 18:08 91 H 97/56 L 05/30/22 18:07 85 05/30/22 18:02 88 05/30/22 17:57 85 05/30/22 17:58 83 105/61 05/30/22 17:52 92 H 05/30/22 17:48 89 101/62 05/30/22 17:47 92 H 05/30/22 17:42 94 H BP Pulse Ox O2 Del Method 05/31/22 04:40 102/67 95 Room Air 05/31/22 03:30 94 05/30/22 23:30 110/70 96 Room Air 05/31/22 02:30 97 05/31/22 01:30 97 05/31/22 00:30 95 05/30/22 23:30 96 05/30/22 22:30 96 05/30/22 20:45 109/72 96 Room Air 05/30/22 20:30 96 05/30/22 19:30 96 Room Air 05/30/22 19:30 96 05/30/22 19:20 05/30/22 19:20 Room Air 05/30/22 19:20 100 Room Air 05/30/22 18:48 05/30/22 18:18 05/30/22 18:08 05/30/22 17:58 05/30/22 17:48 05/30/22 19:17 100 05/30/22 19:12 99 05/30/22 19:08 05/30/22 19:07 99 05/30/22 19:02 99 05/30/22 18:57 99 05/30/22 18:58 05/30/22 18:52 99 05/30/22 18:48 05/30/22 18:47 99 05/30/22 18:42 100 05/30/22 18:38 05/30/22 18:37 100 05/30/22 18:32 100 05/30/22 18:28 05/30/22 18:27 100 05/30/22 18:22 100 05/30/22 18:19 05/30/22 18:17 100 05/30/22 18:12 100 05/30/22 18:08 05/30/22 18:07 100 05/30/22 18:02 100 05/30/22 17:57 100 05/30/22 17:58 05/30/22 17:52 100 05/30/22 17:48 05/30/22 17:47 100 05/30/22 17:42 100 <Nettie Michaels MD - Last Filed: 05/31/22 07:02> Co-Signing Physician Notes Resident Physician Supervision Note: I interviewed and examined the patient. Discussed with Dr. Payne and agree with findings and plan as documented in the note. Any exceptions or clarifications are listed here: POD1 s/p pLTCS, doing well. VSS, exam benign and wnl, dressing w/ small area of shadowing on lower L that was stable overnight per nursing. Will remove in shower today, qiu, continue routine pp care Documented By: Nettie Michaels MD Resident Activity Tracking <Barbara Payne DO - Last Filed: 05/31/22 06:18> Resident Involvement: Resident Care Provided Care Provided: OB Delivery
[2022-05-31] MEDS ORDERED: LACTATED RINGER'S 1,000 ML IV SCH (06:00)
[2022-05-31 06:51] LABS: Basophils # (auto) 0.02 K/uL (0-0.2); Basophils % (auto) 0.2 %; Eosinophils # (auto) 0.06 K/uL (0-0.50); Eosinophils % (auto) 0.5 %; Hematocrit (blood only) 28.2 % (34.1-44.9); Hemoglobin 9.8 g/dl (12.0-16.0); Immature Granulocytes # (auto) 0.04 K/uL (0.00-0.02); Immature Granulocytes % (auto) 0.4 %; Lymphocytes # (auto) 1.11 K/uL (1.2-3.4); Mean Corpuscular Hemoglobin 33.7 pg (25.0-34.0); Mean Corpuscular Hgb Conc 34.8 g/dL (32.0-36.0); Mean Corpuscular Volume 96.9 fL (80.0-100.0); Mean Platelet Volume 8.2 fL (9.4-12.3); Monocytes # (auto) 0.61 K/uL (0.24-0.82); Monocytes % (auto) 5.5 %; Neutrophils # (auto) 9.21 K/uL (1.4-6.5); Neutrophils % (auto) 83.4 %; Platelet Count 194 K/uL (130-400); RDW Coefficient of Variation 14.2 % (11.5-14.5); RDW Standard Deviation 50.7 fL (36.4-46.3); Red Blood Count 2.91 M/uL (3.93-5.22); White Blood Count 11.05 K/ul (4.8-10.8)
[2022-05-31] MEDS: DOCUSATE SODIUM 100 MG CAP PO SCH ×2 (08:36→20:35)
[2022-05-31] MEDS: SIMETHICONE 80 MG CHEW PO SCH ×4 (08:36→22:16)
[2022-05-31] MEDS: PRENATAL VITAMIN 1 TAB PO SCH (08:36)
[2022-05-31] MEDS: FERROUS SULFATE 325 MG TAB PO SCH (08:36)
[2022-05-31] MEDS ORDERED: DIPHTHERIA/TETANUS/PERTUSSIS 0.5 ML SYR/VIAL IM ONE (09:00)
[2022-05-31] MEDS ORDERED: ONDANSETRON INJ 2 MG/ML 2 ML VIAL IV PRN (10:11)
[2022-05-31] MEDS ORDERED: KETOROLAC 30 MG/ML VIAL IV PRN (10:11)
[2022-05-31] MEDS ORDERED: oxyCODONE/ACETAMINOPHEN 5mg/325mg TAB PO PRN (10:11)
[2022-05-31] MEDS ORDERED: diphenhydrAMINE Capsule 25 MG CAP PO PRN (10:11)
[2022-05-31] MEDS ORDERED: diphenhydrAMINE 50 MG/ML VIAL IV PRN (10:11)
[2022-05-31] MEDS: IBUPROFEN 600 MG TAB PO PRN ×2 (15:44→23:57)
[2022-05-31] MEDS ORDERED: bisacodyL 5 MG TABEC PO SCH (20:00)
[2022-06-01 06:31] LABS: Hematocrit (blood only) 29.6 % (34.1-44.9); Hemoglobin 10.1 g/dl (12.0-16.0)
--- NOTE | 2022-06-01 06:31 | Obstetrical Progress Note ---
Date of Service <Barbara RichardsonGlenn Payne DO - Last Filed: 06/01/22 06:58> June 01, 2022 Assessment & Plan <Barbara Smith DO Kerry - Last Filed: 06/01/22 06:58> (1) care following delivery: Patient is PPD 2 s/p primary C section and doing well. - Eating well, voiding well, ambulating well - Vitals reviewed and within normal limits - Pain well controlled with analgesics - OOB, ambulation, diet progression as tolerated - Blood type: A+, GBS neg, rubella immune - Plan to discharge tomorrow per pt preference - After discharge, 6 week follow up with Dr. Michaels <Leta Benites MD, FACOG - Last Filed: 06/01/22 07:28> (1) care following delivery: Subjective <Barbara Smith DO Kerry - Last Filed: 06/01/22 06:58> Patient is a 37 yo female is POD #2 following delivery at 35+5 weeks. She reports feeling well overall this morning. She endorses "gas pains" and soreness well managed on analgesics. Voiding without issue. Tolerating regular meals overnight and able to ambulate some. She has passed gas and no bowel movement. Persistent lochia with some improvement this morning. Currently breast feeding. Review of Systems Denies fever, chills, sweats. Denies SOB, difficulty breathing, chest pain, palpitations, and chest pressure. Denies breast pain. Denies dysuria. Denies headache or changes in vision. Physical Exam <Barbara RichardsonGlenn Payne DO - Last Filed: 06/01/22 06:58> General: Alert and oriented. No acute distress. CV: Regular rate and rhythm. No murmurs. Respiratory: CTA bilaterally. No rhonchi, wheezes, or crackles. No increased work of breathing. Abdomen: Positive bowel sounds. Soft, nontender, and nondistended. Uterus: Fundus firm and palpable 3 cm below umbilicus. Surgical scar clean and healing well. Lower extremities: No LE edema. No deep calf pain. Moris's negative bilaterally. Results & Data ([facility]) <Barbara Payne DO - Last Filed: 06/01/22 06:58> Vital Signs (Past 12 Hours) Vital Signs Temp Pulse Resp BP Pulse Ox O2 Del Method 06/01/22 00:05 36.5 C 102 H 18 103/68 Room Air 05/31/22 19:29 36.7 C 100 H 16 111/68 97 Room Air <Leta Benites MD, FACOG - Last Filed: 06/01/22 07:28> Co-Signing Physician Notes Resident Physician Supervision Note: I interviewed and examined the patient. Discussed with Dr. Payne and agree with findings and plan as documented in the note. Any exceptions or clarifications are listed here: [None] Documented By: Leta Benites MD, FACOG Resident Activity Tracking <Barbara Payne DO - Last Filed: 06/01/22 06:58> Resident Involvement: Resident Care Provided Care Provided: OB Delivery
[2022-06-01] MEDS ORDERED: ACETAMINOPHEN 325 MG TAB PO PRN (07:25)
[2022-06-01] MEDS: DOCUSATE SODIUM 100 MG CAP PO SCH ×2 (07:57→20:48)
[2022-06-01] MEDS: FERROUS SULFATE 325 MG TAB PO SCH (07:57)
[2022-06-01] MEDS: IBUPROFEN 600 MG TAB PO PRN ×2 (07:57→14:02)
[2022-06-01] MEDS: SIMETHICONE 80 MG CHEW PO SCH ×4 (07:57→20:48)
[2022-06-01] MEDS: PRENATAL VITAMIN 1 TAB PO SCH (07:57)
[2022-06-01] MEDS ORDERED: bisacodyL 10 MG SUPP PR PRN (17:10)
[2022-06-02] MEDS: IBUPROFEN 600 MG TAB PO PRN ×3 (01:31→20:14)
--- NOTE | 2022-06-02 05:41 | Obstetrical Progress Note ---
Date of Service <Barbara Huntzan - Last Filed: 06/02/22 06:37> June 02, 2022 Assessment & Plan <Barbara Huntthujames DO - Last Filed: 06/02/22 06:37> (1) care following delivery: Patient is PPD 3 s/p primary C section and doing well. - Eating well, voiding well, ambulating well - Vitals reviewed and within normal limits - Pain well controlled with analgesics - OOB, ambulation, diet progression as tolerated - Blood type: A+, GBS neg, rubella immune - Plan to discharge today - After discharge, 6 week follow up with Dr. Michaels <Faby Schofield, DO - Last Filed: 06/02/22 07:52> (1) care following delivery: Subjective <Barbara Huntthujames DO - Last Filed: 06/02/22 06:37> Patient is a 37 yo female is POD #3 following delivery at 35+5 weeks. She reports feeling well overall this morning. She denies abdominal cramping and sore quality pain well managed on analgesics. Voiding without issue. Tolerating regular meals overnight and able to ambulate some. She has passed gas and no bowel movement. Persistent lochia with some improvement this morning. Currently breast feeding. Review of Systems Denies fever, chills, sweats. Denies SOB, difficulty breathing, chest pain, palpitations, and chest pressure. Denies breast pain. Denies dysuria. Denies headache or changes in vision. Physical Exam <Barbara Huntzan DO - Last Filed: 06/02/22 06:37> General: Alert and oriented. No acute distress. CV: Regular rate and rhythm. No murmurs. Respiratory: CTA bilaterally. No rhonchi, wheezes, or crackles. No increased work of breathing. Abdomen: Positive bowel sounds. Soft, nontender, and nondistended. Uterus: Fundus firm and palpable 3 cm below umbilicus. Surgical scar clean and healing well. Lower extremities: No LE edema. No deep calf pain. Moris's negative bilaterally. Results & Data ([facility]) <Barbara RichardsonGlenn Payne DO - Last Filed: 06/02/22 06:37> Vital Signs (Past 12 Hours) Vital Signs Temp Pulse Resp BP Pulse Ox O2 Del Method 06/01/22 23:04 36.6 C 92 H 29 H 109/69 98 Room Air 06/01/22 19:16 36.8 C 97 H 16 106/69 99 Room Air <Faby Schofield DO - Last Filed: 06/02/22 07:52> Co-Signing Physician Notes Resident Physician Supervision Note: I interviewed and examined the patient. Discussed with Dr. Payne and agree with findings and plan as documented in the note. Any exceptions or clarifications are listed here: POD#3 doing well. Desires DC home, reviewed instructions. Documented By: Faby Schofield DO Resident Activity Tracking <Barbara Payne DO - Last Filed: 06/02/22 06:37> Resident Involvement: Resident Care Provided Care Provided: OB Delivery
[2022-06-02] MEDS: SIMETHICONE 80 MG CHEW PO SCH ×4 (08:21→20:14)
[2022-06-02] MEDS: PRENATAL VITAMIN 1 TAB PO SCH (08:22)
[2022-06-02] MEDS: FERROUS SULFATE 325 MG TAB PO SCH (08:22)
[2022-06-02] MEDS: DOCUSATE SODIUM 100 MG CAP PO SCH ×2 (08:22→20:14)
--- NOTE | 2022-06-03 08:01 | Obstetrical Progress Note ---
Date of Service June 03, 2022 Assessment & Plan (1) care following delivery: Patient is PPD 4 s/p primary C section and doing well. - Eating well, voiding well, ambulating well - Vitals reviewed and within normal limits - Pain well controlled with analgesics - OOB, ambulation, diet progression as tolerated - Blood type: A+, GBS neg, rubella immune - Plan to discharge today - After discharge, 6 week follow up Results & Data ([facility]) Vital Signs (Past 12 Hours) Vital Signs Temp Pulse Resp BP Pulse Ox O2 Del Method 06/02/22 23:00 97.7 F 90 16 107/73 98 Room Air
[2022-06-03] MEDS: DOCUSATE SODIUM 100 MG CAP PO SCH (08:21)
[2022-06-03] MEDS: FERROUS SULFATE 325 MG TAB PO SCH (08:21)
[2022-06-03] MEDS: IBUPROFEN 600 MG TAB PO PRN ×3 (08:21→19:52)
[2022-06-03] MEDS: SIMETHICONE 80 MG CHEW PO SCH ×3 (08:21→15:49)
[2022-06-03] MEDS: PRENATAL VITAMIN 1 TAB PO SCH (08:21)
--- NOTE | 2022-06-05 11:14 | Discharge Summary ---
Date of Service June 05, 2022 Admission HPI Per Admitting Provider 37 yo at 35 5/7 wga presents w/ c/o VB in the setting of known placenta previa. At 120pm today was laying down and felt a warm gush of fluid that was noted to be bloody and watery. This is slightly different to what caused her to present a few weeks ago as today was more watery and continuously trickling out rather than just with wiping a few weeks ago and just more bloody/sticky. +FM, some ctx that are more regular than BH she had previously. Of note was observed at 33 wks for bleeding and given course of BMZ. 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 Of note, she had been observed at 33 weeks for vaginal bleeding that did resolve and received a course of betamethasone. On exam, she was noted to have a moderate to large amount of bleeding today. Given gestational age and bleeding, she was recommended for delivery. See operative report for details. Postoperative course was uncomplicated and she was discharged home on POD4 Coding Level of Care Code None Diagnoses Placenta previa O44.00
== END 2022-06-03 19:53 | disposition home or self-care (01) | DRG 788 ==
LOC: OPB 13:55 → 4S1 13:56 → 4E2 19:30